=== PATIENT | male | born 1930 | race Caucasian/White ===

== ENCOUNTER 2018-10-19 07:41 | Inpatient (IN) ==
[2018-10-19] MEDS ORDERED: IOPAMIDOL 100 ML BOTTLE IV ONE (07:42)
--- NOTE | 2018-10-19 07:58 | Emergency Department Note ---
SOB HPI - General Chief Complaint: Shortness of Breath/Dyspnea Stated Complaint: SOB Time Seen by Provider: 10/19/18 07:44 Source: patient, family Mode of arrival: ambulatory Limitations: no limitations - History of Present Illness Pleasant 88-year-old male who Has been running out of air. He has a history of several years of some of this but he has been worsening in the last week or 2. Even 7 days ago it was causing him to be short of breath to bend ove r to place a tea for golfing. Since that time a week ago he has had some difficulty sleeping where he just seems like he cannot get comfortable but he admits that it is also due to shortness of breath. He has had a few chills but not sweaty. No fevers. He has had some palpitations but no chest pain. He has occasional cough but nothing new has really changed except a little wheeziness. He has had a little more phlegm than usual. Has felt quite short of breath generally and that is why he is here today. REVIEW OF SYSTEMS: Denies sore throat or runny nose but has had some chronic postnasal drainage for months. No chest pain No abdominal pain, nausea, vomiting, diarrhea, constipation, hematochezia. Some urinary hesitancy that has gradually been. No back pain Feels some lightheaded or dizzy. - Related Data Home Medications Medication Instructions Recorded Confirmed Allopurinol [Zyloprim] 05/15/17 Carvedilol 05/15/17 Lasix 05/15/17 Simvastatin 05/15/17 amLODIPine 05/15/17 Allergies Allergy/AdvReac Type Severity Reaction Status Date / Time No Known Drug Allergies Allergy Verified 05/15/17 18:33 Past Medical History - Past Medical History Medical history: Reports: hypertension Surgical history ED: Reports: no surgical history, non-contributory - Social History smoking status: Former smoker Physical Exam Limitations: no limitations General appearance: alert, in no apparent distress Head: atraumatic, normocephalic Eye: Present: normal appearance, PERRL, EOMI. Absent: scleral icterus, conjunctival injection ENT: normal oropharynx, mucous membranes moist Neck: Present: trachea midline. Absent: lymphadenopathy, thyromegaly Chest: Present: symmetric chest wall rise Respiratory: Present: normal lung sounds bilaterally. Absent: respiratory distress, wheezes, stridor, accessory muscle use, prolonged expiratory phase Cardiovascular: Present: regular rate, normal rhythm. Absent: systolic murmur, diastolic murmur Abdominal: Present: soft. Absent: distention, tenderness, guarding, rebound, rigidity, organomegaly, mass Extremities: Present: pedal edema (2/4 bilateral.), pretibial edema (3/4 bilateral.). Absent: calf tenderness Neurological: Present: alert, oriented X3 Psychiatric: Present: normal affect, normal mood Skin: Present: warm, dry Course Vital Signs Temperature 98.0 F 10/19/18 07:43 Pulse Rate 74 10/19/18 07:43 Respiratory Rate 30 H 10/19/18 07:43 Blood Pressure 130/59 10/19/18 07:43 Pulse Oximetry (%) 70 L 10/19/18 07:43 Temperature 98.0 F 10/19/18 07:43 Pulse Rate 58 L 10/19/18 08:49 Respiratory Rate 22 10/19/18 08:49 Blood Pressure 110/47 10/19/18 08:47 Pulse Oximetry (%) 94 10/19/18 08:49 Shortness of Breath/Dyspnea - [facility] Narrative Medical decision making narrative: 8:02 AM -shortness of breath with orthopnea gradually worsening over days to weeks. Labs, EKG, chest x-ray. Initial EKG demonstrates right bundle branch block with PVC. No acute ACS. Is similar to previous EKG from April 2017. Patient admits to missing some of his diuretics accidentally over the past weeks. We will go ahead and give him Lasix 20 mg IV. Chest x-ray demonstrates cardiomegaly and patchy infiltrates. - Lab Data Result diagrams: 10/19/18 08:05 10/19/18 08:05 Lab Results 10/19/18 10/19/18 10/19/18 Range/Units 08:05 08:05 08:05 WBC 5.9 (4.5-11.0) K/mcL RBC 3.95 L (4.50-5.90) M/mcL Hgb 12.3 L (13.5-16.5) g/dL Hct 38.1 L (41.0-55.0) % MCV 96.3 (80.0-100.0) fL MCH 31.0 (26.0-34.0) pg MCHC 32.2 (31.0-36.0) g/dL RDW 15.0 H (11.5-14.5) % Plt Count 140 (140-440) K/mcL MPV 9.3 (7.4-10.4) fL Gran % 78.5 H (38.0-78.0) % Lymph % (Auto) 13.9 L (15.5-49.0) % [place] % (Auto) 7.1 (1.0-12.0) % Eos % (Auto) 0.2 (0.0-7.0) % Baso % (Auto) 0.3 (0.0-2.0) % Gran # 4.6 (1.8-8.0) K/mcL Lymph # (Auto) 0.8 L (1.5-4.8) K/mcL [place] # (Auto) 0.4 (0.1-0.9) K/mcL Eos # (Auto) 0 (0.0-0.7) K/mcL Baso # (Auto) 0 (0.0-0.3) K/mcL D-Dimer (0.00-0.40) ug/ml Sodium 141 (133-145) mmol/L Potassium 4.5 (3.3-5.1) mmol/L Chloride 100 (96-108) mmol/L Carbon Dioxide 27 (22-30) mmol/L Anion Gap 14.0 (8-16) BUN 39 H (8-23) mg/dl Creatinine 1.4 H (0.7-1.2) mg/dl GFR Calculation 45 Glucose 174 H (70-105) mg/dL Calcium 8.5 L (8.6-10.4) mg/dl Total Bilirubin 0.3 (0.0-1.0) mg/dL AST 11 (0-37) U/l ALT 8 (0-40) U/l Alkaline Phosphatase 84 (39-117) U/L Troponin T < 0.01 (0-0.03) ng/ml NT-Pro-B Natriuret Pep 1810.0 H (0-450) pg/ml Total Protein 6.5 (5.9-8.4) gm/dL Albumin 3.5 (3.2-5.2) gm/dL Globulin 3.0 (2.2-3.7) gm/dL Albumin/Globulin Ratio 1.2 (1.0-2.3) Procalcitonin (<0.10) ng/mL 10/19/18 10/19/18 Range/Units 08:05 08:06 WBC (4.5-11.0) K/mcL RBC (4.50-5.90) M/mcL Hgb (13.5-16.5) g/dL Hct (41.0-55.0) % MCV (80.0-100.0) fL MCH (26.0-34.0) pg MCHC (31.0-36.0) g/dL RDW (11.5-14.5) % Plt Count (140-440) K/mcL MPV (7.4-10.4) fL Gran % (38.0-78.0) % Lymph % (Auto) (15.5-49.0) % [place] % (Auto) (1.0-12.0) % Eos % (Auto) (0.0-7.0) % Baso % (Auto) (0.0-2.0) % Gran # (1.8-8.0) K/mcL Lymph # (Auto) (1.5-4.8) K/mcL [place] # (Auto) (0.1-0.9) K/mcL Eos # (Auto) (0.0-0.7) K/mcL Baso # (Auto) (0.0-0.3) K/mcL D-Dimer 1.22 H (0.00-0.40) ug/ml Sodium (133-145) mmol/L Potassium (3.3-5.1) mmol/L Chloride (96-108) mmol/L Carbon Dioxide (22-30) mmol/L Anion Gap (8-16) BUN (8-23) mg/dl Creatinine (0.7-1.2) mg/dl GFR Calculation Glucose (70-105) mg/dL Calcium (8.6-10.4) mg/dl Total Bilirubin (0.0-1.0) mg/dL AST (0-37) U/l ALT (0-40) U/l Alkaline Phosphatase (39-117) U/L Troponin T (0-0.03) ng/ml NT-Pro-B Natriuret Pep (0-450) pg/ml Total Protein (5.9-8.4) gm/dL Albumin (3.2-5.2) gm/dL Globulin (2.2-3.7) gm/dL Albumin/Globulin Ratio (1.0-2.3) Procalcitonin < 0.05 (<0.10) ng/mL Disposition Pt seen by RESOURCE DEVELOPMENT DIRECTOR/PA only: No Summary: Labs are pending. Dr. Kentrell Miramontes is coming on for change of shift. He will assume care and final disposition. Disposition: Still a Patient Referrals: Connor Bhakta MD [Primary Care Provider] -
--- NOTE | 2018-10-19 08:38 | XRay Report ---
INDICATION: Hypoxia TECHNIQUE: AP chest x-ray,portable semiupright COMPARISON: Previous examinations dated 04/25/2012, 07/31/2011 FINDINGS:Previous median sternotomy. There is cardiomegaly. Pulmonary vascularity is prominent and there is probable interstitial pulmonary edema. There is a focal infiltrate in the left midlung consistent with pneumonia. No evidence on frontal view chest x-ray for significant effusion IMPRESSION: 1. Cardiomegaly and probable interstitial edema 2. Focal left lung infiltrate consistent with pneumonia Interpreted and Authenticated by: Perry Jensen 10/19/18
[2018-10-19] MEDS ORDERED: FUROSEMIDE 20 MG/2 ML VIAL IV ONE (08:41)
[2018-10-19 08:50] LABS: Basophils # (Auto) 0 K/mcL (0.0-0.3); Basophils % (Auto) 0.3 % (0.0-2.0); Eosinophils # (Auto) 0 K/mcL (0.0-0.7); Eosinophils % (Auto) 0.2 % (0.0-7.0); Granulocytes % (Auto) 78.5 % (38.0-78.0); Hematocrit 38.1 % (41.0-55.0); Hemoglobin 12.3 g/dL (13.5-16.5); Lymphocytes # (Auto) 0.8 K/mcL (1.5-4.8); Lymphocytes % (Auto) 13.9 % (15.5-49.0); Mean Cell Volume 96.3 fL (80.0-100.0); Mean Corpuscular HGB Conc 32.2 g/dL (31.0-36.0); Mean Platelet Volume 9.3 fL (7.4-10.4); Monocytes # (Auto) 0.4 K/mcL (0.1-0.9); Monocytes % (Auto) 7.1 % (1.0-12.0); Platelet Count 140 K/mcL (140-440); RBC 3.95 M/mcL (4.50-5.90); WBC 5.9 K/mcL (4.5-11.0)
[2018-10-19 09:13] LABS: ALT/SGPT 8 U/l (0-40); AST/SGOT 11 U/l (0-37); Albumin 3.5 gm/dL (3.2-5.2); Albumin/Globulin Ratio 1.2 (1.0-2.3); Alkaline Phosphatase 84 U/L (39-117); Bilirubin,Total 0.3 mg/dL (0.0-1.0); Blood Urea Nitrogen 39 mg/dl (8-23); Calcium 8.5 mg/dl (8.6-10.4); Carbon Dioxide 27 mmol/L (22-30); Chloride 100 mmol/L (96-108); Glomerular Filtration Rate 45; Glucose 174 mg/dL (70-105); Potassium 4.5 mmol/L (3.3-5.1); Sodium 141 mmol/L (133-145)
--- NOTE | 2018-10-19 09:48 | Emergency Department Note ---
General Adult HPI - General Chief complaint: Shortness of Breath/Dyspnea Stated complaint: SOB Time Seen by Provider: 10/19/18 07:44 Source: patient, family Mode of arrival: ambulatory Limitations: no limitations - History of Present Illness HPI Narrative: I received this patient in checkout from Dr. Sosa. I reviewed Dr. Storm note as well as his chest x-ray EKG and available lab Additional history per patient that he does have a history of CHF and has had previous CABG. - Related Data Home Medications Medication Instructions Recorded Confirmed Albuterol Sulfate [Ventolin] 2 puff INH TID PRN 10/19/18 10/19/18 Allopurinol [Zylopriim] 300 mg PO DAILY 10/19/18 10/19/18 Carvedilol [Coreg] 1.5 tab PO HS 10/19/18 10/19/18 Carvedilol [Coreg] 25 mg PO DAILY 10/19/18 10/19/18 Furosemide [Lasix] 40 mg PO DAILY 10/19/18 10/19/18 Lisinopril [Zestril] 40 mg PO BID 10/19/18 10/19/18 Simvastatin [Zocor] 40 mg PO HS 10/19/18 10/19/18 amLODIPine [Norvasc] 5 mg PO DAILY 10/19/18 10/19/18 Allergies Allergy/AdvReac Type Severity Reaction Status Date / Time No Known Drug Allergies Allergy Verified 05/15/17 18:33 Past Medical History - Past Medical History Medical history: Reports: hypertension Surgical history ED: Reports: no surgical history, non-contributory - Social History smoking status: Former smoker Physical Exam I briefly reexamined the patient note that his legs with +2 pedal edema. No shortness of breath but he is on oxygen at the bed. He is mildly hard of hearing Limitations: no limitations General appearance: alert, in no apparent distress Course Vital Signs Temperature 98.0 F 10/19/18 07:43 Pulse Rate 74 10/19/18 07:43 Respiratory Rate 30 H 10/19/18 07:43 Blood Pressure 130/59 10/19/18 07:43 Pulse Oximetry (%) 70 L 10/19/18 07:43 Temperature 98.0 F 10/19/18 07:43 Pulse Rate 51 L 10/19/18 11:17 Respiratory Rate 23 H 10/19/18 11:17 Blood Pressure 121/59 10/19/18 10:45 Pulse Oximetry (%) 96 10/19/18 11:17 Medical Decision Making - Lab Data Lab results reviewed: Yes I reviewed the patient's lab results. Result diagrams: 10/19/18 08:05 10/19/18 08:05 Lab Results 10/19/18 10/19/18 10/19/18 Range/Units 08:05 08:05 08:05 WBC 5.9 (4.5-11.0) K/mcL RBC 3.95 L (4.50-5.90) M/mcL Hgb 12.3 L (13.5-16.5) g/dL Hct 38.1 L (41.0-55.0) % MCV 96.3 (80.0-100.0) fL MCH 31.0 (26.0-34.0) pg MCHC 32.2 (31.0-36.0) g/dL RDW 15.0 H (11.5-14.5) % Plt Count 140 (140-440) K/mcL MPV 9.3 (7.4-10.4) fL Gran % 78.5 H (38.0-78.0) % Lymph % (Auto) 13.9 L (15.5-49.0) % Graham % (Auto) 7.1 (1.0-12.0) % Eos % (Auto) 0.2 (0.0-7.0) % Baso % (Auto) 0.3 (0.0-2.0) % Gran # 4.6 (1.8-8.0) K/mcL Lymph # (Auto) 0.8 L (1.5-4.8) K/mcL Graham # (Auto) 0.4 (0.1-0.9) K/mcL Eos # (Auto) 0 (0.0-0.7) K/mcL Baso # (Auto) 0 (0.0-0.3) K/mcL D-Dimer (0.00-0.40) ug/ml VBG Lactic Acid (0.5-2.0) mmol/L Sodium 141 (133-145) mmol/L Potassium 4.5 (3.3-5.1) mmol/L Chloride 100 (96-108) mmol/L Carbon Dioxide 27 (22-30) mmol/L Anion Gap 14.0 (8-16) BUN 39 H (8-23) mg/dl Creatinine 1.4 H (0.7-1.2) mg/dl GFR Calculation 45 Glucose 174 H (70-105) mg/dL Calcium 8.5 L (8.6-10.4) mg/dl Total Bilirubin 0.3 (0.0-1.0) mg/dL AST 11 (0-37) U/l ALT 8 (0-40) U/l Alkaline Phosphatase 84 (39-117) U/L Troponin T < 0.01 (0-0.03) ng/ml NT-Pro-B Natriuret Pep 1810.0 H (0-450) pg/ml Total Protein 6.5 (5.9-8.4) gm/dL Albumin 3.5 (3.2-5.2) gm/dL Globulin 3.0 (2.2-3.7) gm/dL Albumin/Globulin Ratio 1.2 (1.0-2.3) Procalcitonin (<0.10) ng/mL 10/19/18 10/19/18 10/19/18 Range/Units 08:05 08:06 10:54 WBC (4.5-11.0) K/mcL RBC (4.50-5.90) M/mcL Hgb (13.5-16.5) g/dL Hct (41.0-55.0) % MCV (80.0-100.0) fL MCH (26.0-34.0) pg MCHC (31.0-36.0) g/dL RDW (11.5-14.5) % Plt Count (140-440) K/mcL MPV (7.4-10.4) fL Gran % (38.0-78.0) % Lymph % (Auto) (15.5-49.0) % Graham % (Auto) (1.0-12.0) % Eos % (Auto) (0.0-7.0) % Baso % (Auto) (0.0-2.0) % Gran # (1.8-8.0) K/mcL Lymph # (Auto) (1.5-4.8) K/mcL Graham # (Auto) (0.1-0.9) K/mcL Eos # (Auto) (0.0-0.7) K/mcL Baso # (Auto) (0.0-0.3) K/mcL D-Dimer 1.22 H (0.00-0.40) ug/ml VBG Lactic Acid 0.5 (0.5-2.0) mmol/L Sodium (133-145) mmol/L Potassium (3.3-5.1) mmol/L Chloride (96-108) mmol/L Carbon Dioxide (22-30) mmol/L Anion Gap (8-16) BUN (8-23) mg/dl Creatinine (0.7-1.2) mg/dl GFR Calculation Glucose (70-105) mg/dL Calcium (8.6-10.4) mg/dl Total Bilirubin (0.0-1.0) mg/dL AST (0-37) U/l ALT (0-40) U/l Alkaline Phosphatase (39-117) U/L Troponin T (0-0.03) ng/ml NT-Pro-B Natriuret Pep (0-450) pg/ml Total Protein (5.9-8.4) gm/dL Albumin (3.2-5.2) gm/dL Globulin (2.2-3.7) gm/dL Albumin/Globulin Ratio (1.0-2.3) Procalcitonin < 0.05 (<0.10) ng/mL - Radiology Data Radiology results reviewed: Yes I reviewed the patient's radiology results. Chest x-ray shows stigmata of CHF with interstitial edema and increased pulmonary vascular marking\\ CTA of the chest shows significant pneumonia as well as findings that could be consistent with underlying CHF - EKG Data EKG #1 EKG attestation: Yes I reviewed and interpreted this EKG. EKG results narrative: EKG shows sinus bradycardia with right bundle branch block and occasional PVC Disposition Pt seen by REAL ESTATE ASSISTANT/PA only: No Clinical Impression: Congestive heart failure Qualifiers: Heart failure type: unspecified Heart failure chronicity: acute on chronic Qualified Code(s): I50.9 - Heart failure, unspecified Community acquired pneumonia Qualifiers: Laterality: left Lung location: lower lobe of lung Qualified Code(s): J18.1 - Lobar pneumonia, unspecified organism Summary: Patient was given a dose of furosemide but had not urinated yet. D-dimer was elevated so CTA was ordered CT scan does not show pulmonary emboli but it does show community acquired pneumonia. Blood cultures are ordered and antibiotic started per antibiotic gram this is Rocephin plus azithromycin. I did discuss the situation with the patient and his son-he will require hospital stay Patient will require hospital admission because he is having tachypnea now requiring oxygen. He will require treatment for the pneumonia as well as the CHF. Further laboratories ordered. Hospitalist will be consulted Dr. Palumbo, our hospitalist was consulted on this patient. He agreed to accept the patient for further care and evaluation in the hospital Disposition: Xfer As Inpt ([facility]) Condition: Fair Referrals: Connor Bhakta MD [Primary Care Provider] -
--- NOTE | 2018-10-19 10:18 | Cat Scan Report ---
CLINICAL INFORMATION: Dyspnea. Elevated d-dimer. COMPARISON: Chest x-ray dated 10/19/2018 TECHNIQUE: Axial images obtained through the chest. 80 mL intravenous contrast was administered, and scanning was performed during pulmonary arterial phase. Sagittally and coronally reformatted images were obtained. MIP reformatted images. FINDINGS: Main pulmonary artery, right pulmonary artery, left pulmonary artery are negative. No intraluminal filling defects. No lobar or segmental emboli. Examination is negative for pulmonary embolism. There is cardiomegaly. There is no pericardial fluid. Chest x-ray suggestive of interstitial pulmonary edema. There are areas of patchy airspace consolidation. Findings are nonspecific. Acute pneumonia or organizing pneumonia are possible. There is right pleural calcification. This is probably chronic and related to previous infection. No left-sided calcified pleural plaques. No significant pleural effusion. There is some loculated fluid within the left major fissure. No acute thoracic compression fractures. Mild wedging deformities of the T6 and T9 vertebral bodies. No lytic lesions. Patient has undergone previous sternotomy and coronary artery bypass. No rib fractures or lytic lesions. There are multiple renal cysts. Upper abdomen is otherwise negative IMPRESSION: 1. Negative pulmonary CTA. Negative examination for pulmonary embolism 2. Patchy areas of airspace consolidation. Appearance is consistent with acute pneumonia or organizing pneumonia 3. Cardiomegaly. Probable interstitial edema. 4. Chronic right pleural calcification The exam was performed using radiation dose optimization techniques including, but not limited to, automated exposure control, adjustment of the mA and/or kV according to patient size and use of iterative reconstruction technique. Interpreted and Authenticated by: Perry Jensen 10/19/18
[2018-10-19] MEDS ORDERED: cefTRIAXone 1 GM VIAL IV ONE ×2 (10:36→12:45)
[2018-10-19] MEDS ORDERED: AZITHROMYCIN 250 MG TABLET PO ONE (10:36)
--- NOTE | 2018-10-19 11:58 | Internal Med History&Physical ---
Medical - H&P: HPI Patient information: Note initiated : 10/19/18 at 11:54 am Service Date, if different from initiated Date: [] Patient: Cristobal Moralez a 88 y/o M admitted on for Shortness of breath. Chief Complaint: [] History of present illness: Mr. Moralez is a 88 year old M with history of cardiac issues, presented to the hospital today for evaluation of shortness of breath that has been going on for the last 1 week. The patient notes that he was fine a week ago, he played a long game of golf and thinks he overexerted himself. Since then he has been having progressive shortness of breath. The patient was having decreased effort tolerance, and some mild cough. The patient then went to [place] for 3 days for a family outing. He also notes he may have overexerted over there. The patient did not take his water pills for the last 3 days. When he came back the patient's condition had worsened significantly, usually the patient is able to do yard work and then needs to take a rest because of shortness of breath every half an hour or so. The patient was now short of breath with minimal activity and even at rest he was therefore brought to the emergency room for further evaluation. The patient admits to having some cough with brownish sputum. Shortness of breath, however no other complaints. He has intermittent dizziness, denies any chest pain does always feel cold but no chills reported. No headache changes in vision no difficulty in swallowing no nausea no vomiting no diarrhea no recent hospitalizations reported. Patient has chronic lower extremity edema which is slightly worse now as he has missed his diuretic dose. Gill On presenting to the emergency room patient was afebrile heart rate 74 blood pressure 130 x 59 saturating 70% on room air. Respiration rate was 30 Chest x-ray was done which shows patient has bilateral pneumonia, cardiomegaly and possible CHF, patient had a positive d-dimer and a CT angios was done which was negative for PE but patient had pneumonia, also had some pleural effusion in the left fissure.?? Loculated?? Labs show WBC count of 5.9 hemoglobin 12.3 platelets 140 sodium 141 potassium 4.5 BUN 39 creatinine 1.4 which is nearly at baseline bicarbonate 27 glucose 174 procalcitonin is less than 0.05 BNP is 1810. At the time of my evaluation patient was needing around 6 L of oxygen to maintain his oxygen saturation more than 90. Patient is being admitted to the PCU for further management All systems: reviewed and no additional remarkable complaints except as stated (as per HPI rest negative) Medical - H&P: PMH Medical history: Medical History (Last Updated 10/19/18 @ 07:58 by Maxwell Sosa DO) Hyperlipidemia (Acute) COPD (chronic obstructive pulmonary disease) (Chronic) History of gout (Chronic) Obesity (BMI 30.0-34.9) (Chronic) Hypertension, essential (Chronic) CAD CHF? lower extremity edema Surgical history: Past Surgical History (Last Updated 10/19/18 @ 07:56 by Maxwell Sosa DO) History of coronary artery bypass graft (Chronic) Family history: reviewed and not pertinent Social history: lives with son ex tobacco user no etoh reported no drugs reported Medical - H&P: Meds Home Medications Medication Instructions Recorded Confirmed Type Allopurinol [Zyloprim] 05/15/17 History Carvedilol 05/15/17 History Lasix 05/15/17 History Simvastatin 05/15/17 History amLODIPine 05/15/17 History Allergies Allergy/AdvReac Type Severity Reaction Status Date / Time No Known Drug Allergies Allergy Verified 05/15/17 18:33 Medical - H&P: Exam - Constitutional Vitals: Temp Pulse Resp BP Pulse Ox 98.0 F 51 L 23 H 121/59 96 10/19/18 07:43 10/19/18 11:17 10/19/18 11:17 10/19/18 10:45 10/19/18 11:17 Exam: GENERAL: The patient is a well-developed, well-nourished in no apparent distress. Is alert and oriented x3. obese individual VITAL SIGNS: Reviewed and as noted elsewhere. HEENT: Head is normocephalic and atraumatic. Extraocular muscles are intact. Pupils are equal, round, and reactive to light. Nares appeared normal. Mouth appears any without lesions. Mucous membranes are dry. NECK: Normal to inspection, Supple, No lymphadenopathy or thyromegaly. LUNGS: Air entry equal on both sides, no wheezing, decreased air entry on both sides, pt on 5-6 L oxygen, no rales or obvious rhonchi noted. pt speaking full sentences. HEART: Regular rate and rhythm normal, S1 and S2 heard, no Gallop, S3 or Rub Noted, No Gross murmur heard. ABDOMEN: Soft, nontender, and nondistended. Positive bowel sounds. No hepatosplenomegaly was noted. Large pannus EXTREMITIES: No cyanosis, clubbing, rash, , edema _+++ NEUROLOGIC: Cranial nerves II through XII are grossly intact. Motor and Sensory System Grossly Intact PSYCHIATRIC: Normal affect, Normal Mood. Appropriate Behavior. SKIN: No ulceration or wounds noted, No jaundice, No rash noted. Medical - H&P: Reslt - Labs CBC & Chem 7: 10/19/18 08:05 10/19/18 08:05 Labs: Short CBC 10/19/18 Range/Units 08:05 WBC 5.9 (4.5-11.0) K/mcL Hgb 12.3 L (13.5-16.5) g/dL Hct 38.1 L (41.0-55.0) % Plt Count 140 (140-440) K/mcL BMP 10/19/18 08:05 Sodium 141 Potassium 4.5 Chloride 100 Carbon Dioxide 27 BUN 39 H Creatinine 1.4 H Glucose 174 H Calcium 8.5 L Cardiac Enzymes 10/19/18 Range/Units 08:05 Troponin T < 0.01 (0-0.03) ng/ml Liver Function 10/19/18 Range/Units 08:05 Total Bilirubin 0.3 (0.0-1.0) mg/dL AST 11 (0-37) U/l ALT 8 (0-40) U/l Alkaline Phosphatase 84 (39-117) U/L Albumin 3.5 (3.2-5.2) gm/dL Medical - H&P: A/P - Narrative A/P Narrative: A/P Acute hypoxic Respiratory failure -Pt on 5-6 L oxgye, if worsens will consider bipap -treat underlying condition Pneumonia, Community Acquired -IV rocehin and zithromax -blood and sputum cx, urine strep ag, mycoplasma and legionella Obesity, bmi 332.2 CAD, s/p bypass -no cp, n statin, asa, resume home meds HTN -bp stable, -given infection, will hold off on resuming home meds, HLD on statin, resume once verified. CKD -creat is 1.4, at baseline it seems DVT hep sq Diet cardiac Full code. Pt ok with short term vent, but does not wish to be a vegetable
[2018-10-19] MEDS ORDERED: NALOXONE HCL 0.4 MG/ML VIAL IV PRN (12:28)
[2018-10-19] MEDS ORDERED: MAG HYDROX/AL HYDROX/SIMETH 30 ML ORAL.SUSP PO PRN (12:28)
[2018-10-19] MEDS ORDERED: ONDANSETRON 4 MG/2 ML VIAL IV PRN (12:28)
[2018-10-19] MEDS ORDERED: ACETAMINOPHEN 325 MG TABLET PO PRN (12:28)
[2018-10-19] MEDS ORDERED: ALBUTEROL SULFATE 1 PUFF INHALER INH PRN (13:59)
[2018-10-19] MEDS ORDERED: FUROSEMIDE 40 MG/4 ML VIAL IV ONE (13:59)
[2018-10-19] MEDS: 0.9 % SODIUM CHLORIDE 10 ML SYRINGE IV SCH ×2 (14:00→22:15)
--- NOTE | 2018-10-19 14:08 | Internal Med Progress Note ---
Medical - PN: Subj Patient information: Note initiated : 10/19/18 at 1:49 pm Service Date, if different from initiated Date: [] Patient: Cristobal Moralez a 88 y/o M admitted on 10/19/18 for Shortness of breath. Chief Complaint: [] Interval history: Mr. Moralez is a 88 year old M with history of cardiac issues, presented to the hospital today for evaluation of shortness of breath that has been going on for the last 1 week. The patient notes that he was fine a week ago, he played a long game of golf and thinks he overexerted himself. Since then he has been having progressive shortness of breath. The patient was having decreased effort tolerance, and some mild cough. The patient then went to [place] for 3 days fo r a family outing. He also notes he may have overexerted over there. The patient did not take his water pills for the last 3 days. When he came back the patient's condition had worsened significantly, usually the patient is able to do yard work and then needs to take a rest because of shortness of breath every half an hour or so. The patient was now short of breath with minimal activity and even at rest he was therefore brought to the emergency room for further evaluation. The patient admits to having some cough with brownish sputum. Shortness of breath, however no other complaints. He has intermittent dizziness, denies any chest pain does always feel cold but no chills reported. No headache changes in vision no difficulty in swallowing no nausea no vomiting no diarrhea no recent hospitalizations reported. Patient has chronic lower extremity edema which is slightly worse now as he has missed his diuretic dose. [place] On presenting to the emergency room patient was afebrile heart rate 74 blood pressure 130 x 59 saturating 70% on room air. Respiration rate was 30 Chest x-ray was done which shows patient has bilateral pneumonia, cardiomegaly and possible CHF, patient had a positive d-dimer and a CT angios was done which was negative for PE but patient had pneumonia, also had some pleural effusion in the left fissure.?? Loculated?? Labs show WBC count of 5.9 hemoglobin 12.3 platelets 140 sodium 141 potassium 4.5 BUN 39 creatinine 1.4 which is nearly at baseline bicarbonate 27 glucose 174 procalcitonin is less than 0.05 BNP is 1810. At the time of my evaluation patient was needing around 6 L of oxygen to maintain his oxygen saturation more than 90. Patient is being admitted to the PCU for further management 10/20 - Constitutional Vitals: Vital Signs Temp Pulse Resp BP Pulse Ox 97.2 F 57 L 16 133/67 97 10/19/18 12:28 10/19/18 12:17 10/19/18 12:28 10/19/18 12:28 10/19/18 12:28 Period Temp Pulse Resp BP Sys/Hamilton Pulse Ox Last 24 Hr 97.2 F-98.0 F 51-74 14-30 93-135/46-67 70-97 Intake and Output 10/18/18 10/19/18 10/19/18 21:59 05:59 13:59 Output Total 275 Balance -275 Weight 102.058 kg Patient Weight 10/20/18 05:59 Weight 102.058 kg Intake & Output: Intake & Output 10/18/18 10/19/18 10/19/18 21:59 05:59 13:59 Output Total 275 Balance -275 Weight 102.058 kg Output: Urine Catheter Amount 275 Other: Urine Appearance Clear Urine Color Pale Urine Odor Normal Exam: General: Alert, Awake, No acute Distress Eyes/N/T: EOMI, Head/Neck: neck supple, CV: RRR, No murmurs, Pulm: Abd: soft, nontender, +BS x4 Ext: no clubbing/cyanosis + b/l LE edema Neuro: Alert, no focal deficits, moves all extremities, Skin: warm/dry Medical - PN: Obj Da - Labs CBC & Chem 7: 10/19/18 08:05 10/19/18 08:05 Labs: Abnormal Lab Results 10/19/18 10/19/18 10/19/18 08:06 08:05 08:05 RBC 3.95 L Hgb 12.3 L Hct 38.1 L RDW 15.0 H Gran % 78.5 H Lymph % (Auto) 13.9 L Lymph # (Auto) 0.8 L D-Dimer 1.22 H BUN 39 H Creatinine 1.4 H Glucose 174 H Calcium 8.5 L NT-Pro-B Natriuret Pep 1810.0 H Meds: Medications Acetaminophen (Tylenol) 650 mg PO Q4-6HP PRN PRN Reason: PAIN/FEVER > 101 Al Hydrox/Mg Hydrox/Simethicone (Maalox) 30 ml PO Q4-6HP PRN PRN Reason: Dyspepsia Albuterol/Ipratropium (Duoneb) 3 ml NEB Q4HRT [facility] Azithromycin (Zithromax) 250 mg PO DAILY [facility]; Protocol Stop: 10/23/18 09:01 Famotidine (Pepcid) 20 mg IV HS [facility] Heparin Sodium (Porcine) (Heparin) 5,000 unit SQ Q12 [facility] Ceftriaxone Sodium 2 gm/ (Dextrose) 50 mls @ 100 mls/hr IV DAILY [facility]; Protocol Naloxone HCl (Narcan) 0.1 mg IV Q2MIN PRN PRN Reason: Opiate Reversal Ondansetron HCl (Zofran) 4 mg IV Q4-6HP PRN PRN Reason: Nausea And Vomiting Sodium Chloride (Saline Flush) 10 ml IV Q8 [facility] Medical - PN: A/P - Time Spent With Patient Total time spent is greater than 50% in coordination of care (as documented) at patient's floor/unit and/or counseling patient: - Narrative A/P Narrative: A: *Acute hypoxic respiratory failure -5-6L oxymask on admit *CAP: -myco/Strep Ag neg *acute on likely chronic CHF: *CAD w/CABG: *HTN: on norvasc/lisinopril/coreg/lasix *CKD III: *Obesity: * P: -IV Rocephin/Azithromycin -Wean down oxygen -IS/Acapella -pending BC/SC -Continue ASA -Restart home coreg, hold lisinopril and norvasc for now -IV lasix -echo -pt -ppx: heparin/pepcid full code
[2018-10-19] MEDS: IPRATROPIUM/ALBUTEROL 3 ML AMPUL.NEB NEB SCH ×2 (15:14→18:57)
[2018-10-19] MEDS ORDERED: IPRATROPIUM/ALBUTEROL 3 ML AMPUL.NEB NEB PRN (19:57)
[2018-10-19] MEDS: HEPARIN 5,000 UNIT/ML VIAL SQ SCH (20:38)
[2018-10-19] MEDS: FAMOTIDINE/PF 20 MG/2 ML VIAL IV SCH (20:38)
[2018-10-19] MEDS: SIMVASTATIN 40 MG TABLET PO SCH (20:38)
[2018-10-19] MEDS ORDERED: CARVEDILOL 12.5 MG TABLET PO SCH (21:00)
[2018-10-20 05:33] LABS: Basophils # (Auto) 0 K/mcL (0.0-0.3); Basophils % (Auto) 0.3 % (0.0-2.0); Eosinophils # (Auto) 0.1 K/mcL (0.0-0.7); Eosinophils % (Auto) 2.2 % (0.0-7.0); Granulocytes % (Auto) 69.2 % (38.0-78.0); Hematocrit 36.2 % (41.0-55.0); Hemoglobin 11.7 g/dL (13.5-16.5); Lymphocytes # (Auto) 1.1 K/mcL (1.5-4.8); Mean Cell Volume 97.5 fL (80.0-100.0); Mean Corpuscular HGB Conc 32.3 g/dL (31.0-36.0); Mean Platelet Volume 8.7 fL (7.4-10.4); Monocytes # (Auto) 0.7 K/mcL (0.1-0.9); Monocytes % (Auto) 11.3 % (1.0-12.0); Platelet Count 136 K/mcL (140-440); RBC 3.72 M/mcL (4.50-5.90); Red Cell Distribution Width 14.5 % (11.5-14.5); WBC 6.3 K/mcL (4.5-11.0)
[2018-10-20] MEDS: 0.9 % SODIUM CHLORIDE 10 ML SYRINGE IV SCH ×3 (05:45→22:26)
[2018-10-20 05:58] LABS: ALT/SGPT 8 U/l (0-40); AST/SGOT 9 U/l (0-37); Albumin 3.3 gm/dL (3.2-5.2); Albumin/Globulin Ratio 1.2 (1.0-2.3); Alkaline Phosphatase 74 U/L (39-117); Bilirubin,Direct < 0.2 mg/dL (0.0-0.3); Bilirubin,Total 0.2 mg/dL (0.0-1.0); Blood Urea Nitrogen 43 mg/dl (8-23); Calcium 8.2 mg/dl (8.6-10.4); Carbon Dioxide 30 mmol/L (22-30); Chloride 103 mmol/L (96-108); Globulin 2.8 gm/dL (2.2-3.7); Glomerular Filtration Rate 54; Glucose 123 mg/dL (70-105); Lactate Dehydrogenase 127 U/L (94-250); Magnesium 2.3 mg/dL (1.6-2.5); Phosphorous 4.7 mg/dL (2.7-4.5); Potassium 4.7 mmol/L (3.3-5.1); Sodium 144 mmol/L (133-145); Triglycerides 55 mg/dl (<150); Uric Acid 4.4 mg/dL (2.5-8.0)
--- NOTE | 2018-10-20 07:35 | Internal Med Progress Note ---
Medical - PN: Subj Patient information: Note initiated : 10/20/18 at 7:31 am Service Date, if different from initiated Date: [] Patient: Cristobal Moralez 88 y/o M admitted on 10/19/18 for Shortness of breath. Chief Complaint: [] Interval history: Mr. Moralez is a 88 year old M with history of cardiac issues, presented to the hospital today for evaluation of shortness of breath that has been going on for the last 1 week. The patient notes that he was fine a week ago, he played a long game of golf and thinks he overexerted himself. Since then he has been having progressive shortness of breath. The patient was having decreased effort tolerance, and some mild cough. The patient then went to [place] for 3 days fo r a family outing. He also notes he may have overexerted over there. The patient did not take his water pills for the last 3 days. When he came back the patient's condition had worsened significantly, usually the patient is able to do yard work and then needs to take a rest because of shortness of breath every half an hour or so. The patient was now short of breath with minimal activity and even at rest he was therefore brought to the emergency room for further evaluation. The patient admits to having some cough with brownish sputum. Shortness of breath, however no other complaints. He has intermittent dizziness, denies any chest pain does always feel cold but no chills reported. No headache changes in vision no difficulty in swallowing no nausea no vomiting no diarrhea no recent hospitalizations reported. Patient has chronic lower extremity edema which is slightly worse now as he has missed his diuretic dose. [place] On presenting to the emergency room patient was afebrile heart rate 74 blood pressure 130 x 59 saturating 70% on room air. Respiration rate was 30 Chest x-ray was done which shows patient has bilateral pneumonia, cardiomegaly and possible CHF, patient had a positive d-dimer and a CT angios was done which was negative for PE but patient had pneumonia, also had some pleural effusion in the left fissure.?? Loculated?? Labs show WBC count of 5.9 hemoglobin 12.3 platelets 140 sodium 141 potassium 4.5 BUN 39 creatinine 1.4 which is nearly at baseline bicarbonate 27 glucose 174 procalcitonin is less than 0.05 BNP is 1810. At the time of my evaluation patient was needing around 6 L of oxygen to maintain his oxygen saturation more than 90. Patient is being admitted to the PCU for further management 10/20 Clinically. Minimal cough. Still has shortness of breath but feels he can breathe easier than yesterday morning. He says that shortness of breath for 2 years but was worsening over the past 1 to 2 weeks. Additionally, did not miss Lasix for the past week. Describes orthopnea at home. Also describes liquids often going down the wrong pipe. Family present. Review of Systems: denies headache/fever/chills/nausea/vomiting/chest or abdominal pain/diarrhea. Otherwise see above. - Constitutional Vitals: Vital Signs Temp Pulse Resp BP Pulse Ox 99.0 F 61 17 124/51 90 10/20/18 04:02 10/19/18 19:00 10/20/18 05:01 10/20/18 05:57 10/20/18 05:57 Period Temp Pulse Resp BP Sys/Hamilton Pulse Ox Last 24 Hr 97.2 F-99.0 F 51-74 13-30 92-137/42-89 70-97 Intake and Output 10/19/18 10/20/18 10/20/18 21:59 05:59 13:59 Intake Total 480 Output Total 900 1250 Balance -420 -1250 Weight 105.3 kg Intake & Output: Intake & Output 10/19/18 10/20/18 10/20/18 21:59 05:59 13:59 Intake Total 480 Output Total 900 1250 Balance -420 -1250 Weight 105.3 kg Intake: Oral 480 Output: Void Amount 900 1250 Other: Meal Dinner Percent of Meal Consumed 75% Urine Color Pale Exam: General: Alert, Awake, No acute Distress Eyes/N/T: EOMI, Head/Neck: neck supple, CV: RRR, 3/6 SM Pulm: Bibasilar rales, no wheezing Abd: soft, nontender, +BS x4 Ext: no clubbing/cyanosis, 2-3+ b/l LE edema Neuro: Alert, no focal deficits, moves all extremities, Skin: warm/dry Medical - PN: Obj Da - Labs CBC & Chem 7: 10/20/18 03:50 10/20/18 03:50 Labs: Abnormal Lab Results 10/20/18 10/20/18 10/19/18 03:50 03:50 08:06 RBC 3.72 L Hgb 11.7 L Hct 36.2 L RDW Plt Count 136 L Gran % Lymph % (Auto) Lymph # (Auto) 1.1 L D-Dimer 1.22 H BUN 43 H Creatinine Glucose 123 H Calcium 8.2 L Phosphorus 4.7 H NT-Pro-B Natriuret Pep 10/19/18 10/19/18 08:05 08:05 RBC 3.95 L Hgb 12.3 L Hct 38.1 L RDW 15.0 H Plt Count Gran % 78.5 H Lymph % (Auto) 13.9 L Lymph # (Auto) 0.8 L D-Dimer BUN 39 H Creatinine 1.4 H Glucose 174 H Calcium 8.5 L Phosphorus NT-Pro-B Natriuret Pep 1810.0 H Meds: Medications Acetaminophen (Tylenol) 650 mg PO Q4-6HP PRN PRN Reason: PAIN/FEVER > 101 Al Hydrox/Mg Hydrox/Simethicone (Maalox) 30 ml PO Q4-6HP PRN PRN Reason: Dyspepsia Albuterol Sulfate (Ventolin) 2 puff INH TIDP PRN PRN Reason: Shortness Of Breath Or Wheezin Albuterol/Ipratropium (Duoneb) 3 ml NEB Q6HP PRN PRN Reason: Shortness Of Breath Or Wheezing Allopurinol (Zylopriim) 300 mg PO DAILY [facility] Aspirin (Aspirin) 81 mg PO DAILY [facility] Azithromycin (Zithromax) 250 mg PO DAILY [facility]; Protocol Stop: 10/23/18 09:01 Carvedilol (Coreg) 25 mg PO DAILY@0800 [facility] Carvedilol (Coreg) 37.5 mg PO HS [facility] Famotidine (Pepcid) 20 mg IV HS [facility] Last Admin: 10/19/18 20:38 Dose: 20 mg Documented by: Furosemide (Lasix) 40 mg PO DAILY [facility] Heparin Sodium (Porcine) (Heparin) 5,000 unit SQ Q12 [facility] Last Admin: 10/19/18 20:38 Dose: 5,000 unit Documented by: Ceftriaxone Sodium 2 gm/ (Dextrose) 50 mls @ 100 mls/hr IV DAILY [facility]; Protocol Naloxone HCl (Narcan) 0.1 mg IV Q2MIN PRN PRN Reason: Opiate Reversal Ondansetron HCl (Zofran) 4 mg IV Q4-6HP PRN PRN Reason: Nausea And Vomiting Simvastatin (Zocor) 40 mg PO HS [facility] Last Admin: 10/19/18 20:38 Dose: 40 mg Documented by: Sodium Chloride (Saline Flush) 10 ml IV Q8 [facility] Last Admin: 10/20/18 05:45 Dose: 10 ml Documented by: Medical - PN: A/P - Time Spent With Patient Total time spent is greater than 50% in coordination of care (as documented) at patient's floor/unit and/or counseling patient: - Narrative A/P Narrative: A: *Acute hypoxic respiratory failure: 2/2 chf/?CAP vs aspiration pneumonitis -5-6L oxymask on admit, now on 5L NC *Acute on 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 Whyet *HTN: on norvasc/lisinopril/coreg/lasix *CKD III: *Obesity: * P: -IV lasix -echo records from dr whyte -Wean down oxygen -IS/Acapella -IV Rocephin/Azithromycin for now -pending BC/SC -Continue ASA/statin -Restart home coreg, hold lisinopril and norvasc for now -pt/ot -ST eval -ppx: heparin/pepcid full code Medical - PN: Qual - VTE Deep Vein Thrombosis/Pulmonary Embolism Present on Admission: No
[2018-10-20] MEDS ORDERED: cefTRIAXone 2 GM VIAL ONE (07:57)
[2018-10-20] MEDS: ALLOPURINOL 300 MG TABLET PO SCH (08:23)
[2018-10-20] MEDS: ASPIRIN 81 MG TAB.CHEW PO SCH (08:23)
[2018-10-20] MEDS: HEPARIN 5,000 UNIT/ML VIAL SQ SCH ×2 (08:23→20:25)
[2018-10-20] MEDS: CARVEDILOL 12.5 MG TABLET PO SCH (08:23)
[2018-10-20] MEDS: AZITHROMYCIN 250 MG TABLET PO SCH (08:23)
[2018-10-20] MEDS: cefTRIAXone 2 GM in DEXTROSE 5% IN WATER 50 ML IV SCH (08:24)
--- NOTE | 2018-10-20 08:39 | XRay Report ---
CLINICAL INFORMATION: f/u edema vs pna COMPARISON: 10/19/2018 also baseline from 04/25/2012 FINDINGS: Moderate cardiomegaly is unchanged. Mediastinum is unremarkable. The pulmonary vessels are moderately congested - worsening. Moderate diffuse interstitial edema has progressed. There is moderate patchy superimposed infiltrate or edema in the left midlung and in the right mid /lower lung. These have worsened. Small bilateral pleural effusions noted IMPRESSION: Moderate CHF - worsening Moderate worsening bilateral airspace disease. Suspect superimposed aspiration versus atypically distributed edema. Consider: swallowing function study to assess aspiration risk when the patient returns to clinical baseline Interpreted and Authenticated by: Perry Morales 10/20/18
[2018-10-20] MEDS ORDERED: FUROSEMIDE 20 MG TABLET PO SCH (09:00)
[2018-10-20] MEDS ORDERED: HYDROCHLOROTHIAZIDE 12.5 MG CAPSULE PO ONE (09:20)
[2018-10-20] MEDS ORDERED: FUROSEMIDE 20 MG/2 ML VIAL IV ONE (09:20)
[2018-10-20] MEDS: FUROSEMIDE 40 MG/4 ML VIAL IV SCH (18:24)
[2018-10-20] MEDS: SIMVASTATIN 40 MG TABLET PO SCH (20:24)
[2018-10-20] MEDS: FAMOTIDINE/PF 20 MG/2 ML VIAL IV SCH (20:25)
[2018-10-20] MEDS ORDERED: CARVEDILOL 12.5 MG TABLET PO SCH (21:00)
[2018-10-21] MEDS: 0.9 % SODIUM CHLORIDE 10 ML SYRINGE IV SCH ×3 (05:19→20:41)
[2018-10-21 07:24] LABS: ALT/SGPT 7 U/l (0-40); AST/SGOT 14 U/l (0-37); Albumin/Globulin Ratio 0.9 (1.0-2.3); Alkaline Phosphatase 73 U/L (39-117); Bilirubin,Direct < 0.2 mg/dL (0.0-0.3); Bilirubin,Total 0.3 mg/dL (0.0-1.0); Blood Urea Nitrogen 42 mg/dl (8-23); Calcium 8.6 mg/dl (8.6-10.4); Carbon Dioxide 32 mmol/L (22-30); Chloride 98 mmol/L (96-108); Globulin 3.2 gm/dL (2.2-3.7); Glomerular Filtration Rate 42; Glucose 112 mg/dL (70-105); Lactate Dehydrogenase 228 U/L (94-250); Magnesium 2.1 mg/dL (1.6-2.5); Phosphorous 3.9 mg/dL (2.7-4.5); Sodium 144 mmol/L (133-145); Triglycerides 68 mg/dl (<150); Uric Acid 4.5 mg/dL (2.5-8.0)
[2018-10-21] MEDS ORDERED: OLANZapine 10 MG VIAL IM ONE (07:45)
--- NOTE | 2018-10-21 08:06 | Internal Med Progress Note ---
Medical - PN: Subj Patient information: Note initiated : 10/21/18 at 7:57 am Service Date, if different from initiated Date: [] Patient: Cristobal Moralez 88 y/o M admitted on 10/19/18 for Shortness of breath. Chief Complaint: [] Interval history: Mr. Moralez is a 88 year old M with history of cardiac issues, presented to the hospital today for evaluation of shortness of breath that has been going on for the last 1 week. The patient notes that he was fine a week ago, he played a long game of golf and thinks he overexerted himself. Since then he has been having progressive shortness of breath. The patient was having decreased effort tolerance, and some mild cough. The patient then went to [place] for 3 days fo r a family outing. He also notes he may have overexerted over there. The patient did not take his water pills for the last 3 days. When he came back the patient's condition had worsened significantly, usually the patient is able to do yard work and then needs to take a rest because of shortness of breath every half an hour or so. The patient was now short of breath with minimal activity and even at rest he was therefore brought to the emergency room for further evaluation. The patient admits to having some cough with brownish sputum. Shortness of breath, however no other complaints. He has intermittent dizziness, denies any chest pain does always feel cold but no chills reported. No headache changes in vision no difficulty in swallowing no nausea no vomiting no diarrhea no recent hospitalizations reported. Patient has chronic lower extremity edema which is slightly worse now as he has missed his diuretic dose. [place] On presenting to the emergency room patient was afebrile heart rate 74 blood pressure 130 x 59 saturating 70% on room air. Respiration rate was 30 Chest x-ray was done which shows patient has bilateral pneumonia, cardiomegaly and possible CHF, patient had a positive d-dimer and a CT angios was done which was negative for PE but patient had pneumonia, also had some pleural effusion in the left fissure.?? Loculated?? Labs show WBC count of 5.9 hemoglobin 12.3 platelets 140 sodium 141 potassium 4.5 BUN 39 creatinine 1.4 which is nearly at baseline bicarbonate 27 glucose 174 procalcitonin is less than 0.05 BNP is 1810. At the time of my evaluation patient was needing around 6 L of oxygen to maintain his oxygen saturation more than 90. Patient is being admitted to the PCU for further management 10/20 Clinically. Minimal cough. Still has shortness of breath but feels he can breathe easier than yesterday morning. He says that shortness of breath for 2 years but was worsening over the past 1 to 2 weeks. Additionally, did not miss Lasix for the past week. Describes orthopnea at home. Also describes liquids often going down the wrong pipe. Family present. 10/20 Had a change in mentation last night with ABG showing CO2 retention. Placed on BiPAP last night with improvement in his ABG. Was agitated this morning and refusing therapies medication. Had a discussion with him he seemed to understand at times but is still overall confused. Review of Systems: denies headache/fever/chills/nausea/vomiting/chest or abdominal pain/diarrhea. Otherwise see above. - Constitutional Vitals: Vital Signs Temp Pulse Resp BP Pulse Ox 97.4 F 66 18 120/50 91 10/21/18 07:11 10/21/18 07:00 10/21/18 07:11 10/21/18 07:01 10/21/18 07:11 Period Temp Pulse Resp BP Sys/Hamilton Pulse Ox Last 24 Hr 97.4 F-101.4 F 54-66 11-28 100-162/46-69 88-99 Intake and Output 10/20/18 10/21/18 10/21/18 21:59 05:59 13:59 Output Total 1500 800 Balance -1500 -800 Weight 104.4 kg Intake & Output: Intake & Output 10/20/18 10/21/18 10/21/18 21:59 05:59 13:59 Output Total 1500 800 Balance -1500 -800 Weight 104.4 kg Output: Void Amount 1500 800 Other: # Bowel Movements 1 1 Exam: General: Alert, Awake, No acute Distress Eyes/N/T: EOMI, Head/Neck: neck supple, CV: RRR, 3/6 SM Pulm: Bibasilar rales improving, no wheezing Abd: soft, nontender, +BS x4 Ext: no clubbing/cyanosis, 1+ b/l LE edema much improved Neuro: Alert, no focal deficits, moves all extremities, Skin: warm/dry Medical - PN: Obj Da - Labs CBC & Chem 7: 10/20/18 03:50 10/21/18 04:00 Labs: Abnormal Lab Results 10/21/18 10/20/18 10/20/18 04:00 08:18 03:50 RBC Hgb Hct RDW Plt Count Gran % Lymph % (Auto) Lymph # (Auto) D-Dimer Carbon Dioxide 32 H BUN 42 H 43 H Creatinine 1.5 H Glucose 112 H 123 H Calcium 8.2 L Phosphorus 4.7 H NT-Pro-B Natriuret Pep 1726.0 H Albumin 3.0 L Albumin/Globulin Ratio 0.9 L 10/20/18 10/19/18 10/19/18 03:50 08:06 08:05 RBC 3.72 L Hgb 11.7 L Hct 36.2 L RDW Plt Count 136 L Gran % Lymph % (Auto) Lymph # (Auto) 1.1 L D-Dimer 1.22 H Carbon Dioxide BUN 39 H Creatinine 1.4 H Glucose 174 H Calcium 8.5 L Phosphorus NT-Pro-B Natriuret Pep 1810.0 H Albumin Albumin/Globulin Ratio 10/19/18 08:05 RBC 3.95 L Hgb 12.3 L Hct 38.1 L RDW 15.0 H Plt Count Gran % 78.5 H Lymph % (Auto) 13.9 L Lymph # (Auto) 0.8 L D-Dimer Carbon Dioxide BUN Creatinine Glucose Calcium Phosphorus NT-Pro-B Natriuret Pep Albumin Albumin/Globulin Ratio Meds: Medications Acetaminophen (Tylenol) 650 mg PO Q4-6HP PRN PRN Reason: PAIN/FEVER > 101 Last Admin: 10/20/18 20:24 Dose: 650 mg Documented by: Al Hydrox/Mg Hydrox/Simethicone (Maalox) 30 ml PO Q4-6HP PRN PRN Reason: Dyspepsia Albuterol Sulfate (Ventolin) 2 puff INH TIDP PRN PRN Reason: Shortness Of Breath Or Wheezin Albuterol/Ipratropium (Duoneb) 3 ml NEB Q6HP PRN PRN Reason: Shortness Of Breath Or Wheezing Allopurinol (Zylopriim) 300 mg PO DAILY [facility] Last Admin: 10/20/18 08:23 Dose: 300 mg Documented by: Aspirin (Aspirin) 81 mg PO DAILY [facility] Last Admin: 10/20/18 08:23 Dose: 81 mg Documented by: Azithromycin (Zithromax) 250 mg PO DAILY [facility]; Protocol Stop: 10/23/18 09:01 Last Admin: 10/20/18 08:23 Dose: 250 mg Documented by: Carvedilol (Coreg) 25 mg PO DAILY@0800 [facility] Last Admin: 10/20/18 08:23 Dose: 25 mg Documented by: Carvedilol (Coreg) 37.5 mg PO [facility] Last Admin: 10/20/18 20:24 Dose: 37.5 mg Documented by: Famotidine (Pepcid) 20 mg IV [facility] Last Admin: 10/20/18 20:25 Dose: 20 mg Documented by: Furosemide (Lasix) 40 mg IV BIDD [facility] Last Admin: 10/20/18 18:24 Dose: 40 mg Documented by: Heparin Sodium (Porcine) (Heparin) 5,000 unit SQ Q12 [facility] Last Admin: 10/20/18 20:25 Dose: 5,000 unit Documented by: Ceftriaxone Sodium 2 gm/ (Dextrose) 50 mls @ 100 mls/hr IV DAILY [facility]; Protocol Last Admin: 10/20/18 08:24 Dose: 100 mls/hr Documented by: Naloxone HCl (Narcan) 0.1 mg IV Q2MIN PRN PRN Reason: Opiate Reversal Ondansetron HCl (Zofran) 4 mg IV Q4-6HP PRN PRN Reason: Nausea And Vomiting Simvastatin (Zocor) 40 mg PO [facility] Last Admin: 10/20/18 20:24 Dose: 40 mg Documented by: Sodium Chloride (Saline Flush) 10 ml IV Q8 [facility] Last Admin: 10/21/18 05:19 Dose: 10 ml Documented by: Medical - PN: A/P - Time Spent With Patient Total time spent is greater than 50% in coordination of care (as documented) at patient's floor/unit and/or counseling patient: - Narrative A/P Narrative: A: *Acute hypoxic/hypercapnic respiratory failure: 2/2 chf/?CAP vs aspiration pneumonitis -5-6L oxymask on admit, now on 4L NC -required bipap last night with improved ABG this morning *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 Chatterjee -good diuresis -echo EF 35-40%, grade III diastolic dysfxn, mild RV dilation, mod PH. No old echo available to compare *Suspect component of Aspiration Pneumonitis/?CAP: *Encephalopathy, metabolic: ?underlying mild dementia: *CAD w/CABG: follows with Dr. Chatterjee *HTN: on norvasc/lisinopril/coreg/lasix *CKD III: *Obesity: * P: -IV lasix bid -Wean down oxygen -IS/Acapella -IV Rocephin/Azithromycin/flagyl for now -pending BC/SC -Continue ASA/statin -Restart home coreg, hold lisinopril and norvasc for now -pt/ot -ST eval and video swallow, dysphagia diet -ppx: heparin/pepcid full code Medical - PN: Qual - VTE Deep Vein Thrombosis/Pulmonary Embolism Present on Admission: No
[2018-10-21] MEDS ORDERED: cefTRIAXone 2 GM VIAL ONE (08:16)
[2018-10-21] MEDS: CARVEDILOL 12.5 MG TABLET PO SCH ×2 (08:20→16:14)
[2018-10-21] MEDS: ASPIRIN 81 MG TAB.CHEW PO SCH (08:20)
[2018-10-21] MEDS: ALLOPURINOL 300 MG TABLET PO SCH (08:20)
[2018-10-21] MEDS: AZITHROMYCIN 250 MG TABLET PO SCH (08:21)
[2018-10-21] MEDS: cefTRIAXone 2 GM in DEXTROSE 5% IN WATER 50 ML IV SCH (08:21)
[2018-10-21] MEDS: FUROSEMIDE 40 MG/4 ML VIAL IV SCH (08:21)
[2018-10-21] MEDS: HEPARIN 5,000 UNIT/ML VIAL SQ SCH ×2 (08:22→20:34)
--- NOTE | 2018-10-21 09:40 | Cat Scan Report ---
CLINICAL INFORMATION: Confusion COMPARISON: None. TECHNIQUE: 2.5 mm helical slices were obtained in the skull base to vertex. Following reconstruction, axial reformatted images were reviewed at bone and parenchymal windows. The exam was performed using radiation dose optimization techniques including, but not limited to, automated exposure control, adjustment of the mA and/or kV according to patient size and use of iterative reconstruction technique. FINDINGS: The ventricles, sulci, fissures, and cisterns are symmetrically enlarged compatible with moderate age-related atrophy.. No extra-axial fluid collections are identified. Moderate patchy chronic ischemic changes in the deep cerebral white matter and scattered remote lacunar infarcts in the deep cerebral white matter basal and ganglia appreciated. There is no evidence of hemorrhage, mass effect, or edema. Bone windows show no osseous abnormality. IMPRESSION: Moderate atrophy and chronic ischemic changes in the deep cerebral white matter with scattered remote lacunar infarcts in the deep cerebral white matter basal ganglia. No acute disease Interpreted and Authenticated by: Perry Morales 10/21/18
--- NOTE | 2018-10-21 10:04 | XRay Report ---
CLINICAL INFORMATION: Follow-up CHF COMPARISON: 10/20/2018 FINDINGS: Mild cardiomegaly has decreased. Sternotomy changes again noted. Mediastinum is unremarkable. Pulmonary vessels have returned to normal in caliber. Diffuse interstitial edema has cleared. A moderate infiltrate in the left midlung and moderate patchy infiltrate in the right base shows slight improvement. Small bilateral pleural effusions have decreased IMPRESSION: Interval resolution CHF. Moderate left midlung and right basilar infiltrates - slight improvement. Suspect superimposed aspiration Interpreted and Authenticated by: Perry Morales 10/21/18
[2018-10-21] MEDS: metroNIDAZOLE 500 MG TABLET PO SCH ×2 (13:53→20:35)
[2018-10-21] MEDS ORDERED: hydrALAZINE 20 MG/ML VIAL IV PRN (15:49)
[2018-10-21] MEDS: amLODIPine 5 MG TABLET PO SCH (16:13)
--- NOTE | 2018-10-21 17:43 | XRay Report ---
CLINICAL INFORMATION: ?aspiration COMPARISON: None. FINDINGS: See attached sheet IMPRESSION: Trace barium penetration into the vestibule due to incomplete epiglottic closure noted only on thin barium. Thicker quality barium and solids passed normally. There is no penetration through the vocal cords into the trachea Moderate focal narrowing of the cervical esophagus at C5-6 level possibly indicating a stricture. Consider endoscopic evaluation and possible dilatation. Interpreted and Authenticated by: Perry Morales 10/21/18
[2018-10-21] MEDS: FAMOTIDINE/PF 20 MG/2 ML VIAL IV SCH (20:34)
[2018-10-21] MEDS ORDERED: SIMVASTATIN 20 MG TABLET PO SCH (21:00)
[2018-10-22] MEDS: metroNIDAZOLE 500 MG TABLET PO SCH ×3 (05:34→20:48)
[2018-10-22] MEDS: 0.9 % SODIUM CHLORIDE 10 ML SYRINGE IV SCH ×3 (05:35→20:49)
[2018-10-22 05:39] LABS: Blood Urea Nitrogen 37 mg/dl (8-23); Calcium 8.5 mg/dl (8.6-10.4); Carbon Dioxide 38 mmol/L (22-30); Chloride 99 mmol/L (96-108); Glomerular Filtration Rate 60; Glucose 117 mg/dL (70-105); Potassium 4.2 mmol/L (3.3-5.1); Sodium 145 mmol/L (133-145)
[2018-10-22] MEDS ORDERED: FUROSEMIDE 40 MG/4 ML VIAL IV ONE (07:04)
[2018-10-22] MEDS ORDERED: ALBUMIN HUMAN 12.5 GM/50 ML BAG IV ONE (07:04)
--- NOTE | 2018-10-22 07:05 | Internal Med Progress Note ---
Medical - PN: Subj Patient information: Note initiated : 10/22/18 at 7:00 am Service Date, if different from initiated Date: [] Patient: Cristobal Moralez 88 y/o M admitted on 10/19/18 for Shortness of breath. Chief Complaint: [] Interval history: Mr. Moralez is a 88 year old M with history of cardiac issues, presented to the hospital today for evaluation of shortness of breath that has been going on for the last 1 week. The patient notes that he was fine a week ago, he played a long game of golf and thinks he overexerted himself. Since then he has been having progressive shortness of breath. The patient was having decreased effort tolerance, and some mild cough. The patient then went to [place] for 3 days fo r a family outing. He also notes he may have overexerted over there. The patient did not take his water pills for the last 3 days. When he came back the patient's condition had worsened significantly, usually the patient is able to do yard work and then needs to take a rest because of shortness of breath every half an hour or so. The patient was now short of breath with minimal activity and even at rest he was therefore brought to the emergency room for further evaluation. The patient admits to having some cough with brownish sputum. Shortness of breath, however no other complaints. He has intermittent dizziness, denies any chest pain does always feel cold but no chills reported. No headache changes in vision no difficulty in swallowing no nausea no vomiting no diarrhea no recent hospitalizations reported. Patient has chronic lower extremity edema which is slightly worse now as he has missed his diuretic dose. [place] On presenting to the emergency room patient was afebrile heart rate 74 blood pressure 130 x 59 saturating 70% on room air. Respiration rate was 30 Chest x-ray was done which shows patient has bilateral pneumonia, cardiomegaly and possible CHF, patient had a positive d-dimer and a CT angios was done which was negative for PE but patient had pneumonia, also had some pleural effusion in the left fissure.?? Loculated?? Labs show WBC count of 5.9 hemoglobin 12.3 platelets 140 sodium 141 potassium 4.5 BUN 39 creatinine 1.4 which is nearly at baseline bicarbonate 27 glucose 174 procalcitonin is less than 0.05 BNP is 1810. At the time of my evaluation patient was needing around 6 L of oxygen to maintain his oxygen saturation more than 90. Patient is being admitted to the PCU for further management 10/20 Clinically. Minimal cough. Still has shortness of breath but feels he can breathe easier than yesterday morning. He says that shortness of breath for 2 years but was worsening over the past 1 to 2 weeks. Additionally, did not miss Lasix for the past week. Describes orthopnea at home. Also describes liquids often going down the wrong pipe. Family present. 10/20 Had a change in mentation last night with ABG showing CO2 retention. Placed on BiPAP last night with improvement in his ABG. Was agitated this morning and refusing therapies medication. Had a discussion with him he seemed to understand at times but is still overall confused. 10/21 Still states he coughs occasionally with thin liquids like coffee but then his son stated it is more when he is lying down and sinus drainage is felt to go down his airpipe. Barium swallow with speech yesterday was okay. Moira reports back in March his started complaining of feeling like liquids are going down the back of his throat. He refuses any thickened liquids. Does not feel like any food gets stuck in his esophagus, or pills. Is occasional dry cough, is on 2 to 3 L nasal cannula. Did not need BiPAP last night, was on oxygen mask desatted a little bit while sleeping. Review of Systems: denies headache/fever/chills/nausea/vomiting/chest or abdominal pain/diarrhea. Otherwise see above. - Constitutional Vitals: Vital Signs Temp Pulse Resp BP Pulse Ox 98.7 F 74 16 141/76 93 10/22/18 04:01 10/22/18 05:10 10/22/18 05:01 10/22/18 06:01 10/22/18 06:01 Period Temp Pulse Resp BP Sys/Hamilton Pulse Ox Last 24 Hr 97.4 F-99.3 F 62-78 16-25 120-164/50-118 77-100 Intake and Output 10/21/18 10/22/18 10/22/18 21:59 05:59 13:59 Intake Total 360 360 Output Total 350 250 Balance 10 110 Weight 104.281 kg Intake & Output: Intake & Output 10/21/18 10/22/18 10/22/18 21:59 05:59 13:59 Intake Total 360 360 Output Total 350 250 Balance 10 110 Weight 104.281 kg Intake: Oral 360 360 Output: Void Amount 350 250 Other: Urine Appearance Clear Sediment Urine Color Pale Dark Yellow Stool Size Moderate Stool Color Brown Stool Consistency Loose # Voids 1 1 # Bowel Movements 1 1 Exam: General: Alert, Awake, No acute Distress Eyes/N/T: EOMI, Head/Neck: neck supple, CV: RRR, 2/6 SM Pulm: mild Bibasilar rales continue to improve, no wheezing Abd: soft, nontender, +BS x4 Ext: no clubbing/cyanosis, b/l LE edema essentially resolved Neuro: Alert, no focal deficits, moves all extremities, Skin: warm/dry Medical - PN: Obj Da - Labs CBC & Chem 7: 10/21/18 04:00 10/22/18 03:30 Labs: Abnormal Lab Results 10/22/18 10/21/18 10/20/18 03:30 04:00 08:18 RBC Hgb Hct RDW Plt Count Gran % Lymph % (Auto) Lymph # (Auto) D-Dimer Carbon Dioxide 38 H 32 H BUN 37 H 42 H Creatinine 1.5 H Glucose 117 H 112 H Calcium 8.5 L Phosphorus NT-Pro-B Natriuret Pep 1726.0 H Albumin 3.0 L Albumin/Globulin Ratio 0.9 L 10/20/18 10/20/18 10/19/18 03:50 03:50 08:06 RBC 3.72 L Hgb 11.7 L Hct 36.2 L RDW Plt Count 136 L Gran % Lymph % (Auto) Lymph # (Auto) 1.1 L D-Dimer 1.22 H Carbon Dioxide BUN 43 H Creatinine Glucose 123 H Calcium 8.2 L Phosphorus 4.7 H NT-Pro-B Natriuret Pep Albumin Albumin/Globulin Ratio 10/19/18 10/19/18 08:05 08:05 RBC 3.95 L Hgb 12.3 L Hct 38.1 L RDW 15.0 H Plt Count Gran % 78.5 H Lymph % (Auto) 13.9 L Lymph # (Auto) 0.8 L D-Dimer Carbon Dioxide BUN 39 H Creatinine 1.4 H Glucose 174 H Calcium 8.5 L Phosphorus NT-Pro-B Natriuret Pep 1810.0 H Albumin Albumin/Globulin Ratio Meds: Medications Acetaminophen (Tylenol) 650 mg PO Q4-6HP PRN PRN Reason: PAIN/FEVER > 101 Last Admin: 10/20/18 20:24 Dose: 650 mg Documented by: Al Hydrox/Mg Hydrox/Simethicone (Maalox) 30 ml PO Q4-6HP PRN PRN Reason: Dyspepsia Albuterol Sulfate (Ventolin) 2 puff INH TIDP PRN PRN Reason: Shortness Of Breath Or Wheezin Albuterol/Ipratropium (Duoneb) 3 ml NEB Q6HP PRN PRN Reason: Shortness Of Breath Or Wheezing Allopurinol (Zylopriim) 300 mg PO DAILY [facility] Last Admin: 10/21/18 08:20 Dose: 300 mg Documented by: Amlodipine Besylate (Norvasc) 5 mg PO DAILY [facility] Last Admin: 10/21/18 16:13 Dose: 5 mg Documented by: Aspirin (Aspirin) 81 mg PO DAILY [facility] Last Admin: 10/21/18 08:20 Dose: 81 mg Documented by: Azithromycin (Zithromax) 250 mg PO DAILY [facility]; Protocol Stop: 10/23/18 09:01 Last Admin: 10/21/18 08:21 Dose: 250 mg Documented by: Carvedilol (Coreg) 12.5 mg PO BIDCC [facility] Last Admin: 10/21/18 16:14 Dose: 12.5 mg Documented by: Famotidine (Pepcid) 20 mg IV HS [facility] Last Admin: 10/21/18 20:34 Dose: 20 mg Documented by: Heparin Sodium (Porcine) (Heparin) 5,000 unit SQ Q12 [facility] Last Admin: 10/21/18 20:34 Dose: 5,000 unit Documented by: Hydralazine HCl (Apresoline) 0 mg IV Q2HP PRN PRN Reason: Hypertension Ceftriaxone Sodium 2 gm/ (Dextrose) 50 mls @ 100 mls/hr IV DAILY [facility]; Protocol Last Infusion: 10/21/18 09:40 Dose: Infused Documented by: Metronidazole (Flagyl) 500 mg PO Q8 [facility]; Protocol Last Admin: 10/22/18 05:34 Dose: 500 mg Documented by: Naloxone HCl (Narcan) 0.1 mg IV Q2MIN PRN PRN Reason: Opiate Reversal Ondansetron HCl (Zofran) 4 mg IV Q4-6HP PRN PRN Reason: Nausea And Vomiting Simvastatin (Zocor) 20 mg PO HS [facility] Last Admin: 10/21/18 20:36 Dose: 20 mg Documented by: Sodium Chloride (Saline Flush) 10 ml IV Q8 [facility] Last Admin: 10/22/18 05:35 Dose: 10 ml Documented by: Medical - PN: A/P - Time Spent With Patient Total time spent is greater than 50% in coordination of care (as documented) at patient's floor/unit and/or counseling patient: - Narrative A/P Narrative: A: *Acute hypoxic/hypercapnic respiratory failure: 2/2 chf &Aspiration pneum onitis/pna -5-6L oxymask on admit, now on 2L NC -no bipap last night *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 Chatterjee. Improved -good diuresis -echo EF 35-40%, grade III diastolic dysfxn, mild RV dilation, mod PH. 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 Chatterjee *HTN: on norvasc/lisinopril/coreg/lasix *CKD III: *Obesity: * P: -decrese IV lasix -Wean down oxygen -IS/Acapella -IV Rocephin/Azithromycin/flagyl for now -discussed case with Dr. Olsen who will see him outpt for EGD -Continue ASA/statin -Restart home coreg, norvasc restarted, hold lisinopril for now -pt/ot -ppx: heparin/pepcid Medical - PN: Qual - VTE Deep Vein Thrombosis/Pulmonary Embolism Present on Admission: No
[2018-10-22] MEDS: cefTRIAXone 2 GM in DEXTROSE 5% IN WATER 50 ML IV SCH (09:24)
[2018-10-22] MEDS: CARVEDILOL 12.5 MG TABLET PO SCH ×2 (09:25→16:16)
[2018-10-22] MEDS: ASPIRIN 81 MG TAB.CHEW PO SCH (09:25)
[2018-10-22] MEDS: AZITHROMYCIN 250 MG TABLET PO SCH (09:25)
[2018-10-22] MEDS: amLODIPine 5 MG TABLET PO SCH (09:25)
[2018-10-22] MEDS: HEPARIN 5,000 UNIT/ML VIAL SQ SCH ×2 (09:26→20:48)
[2018-10-22] MEDS: ALLOPURINOL 300 MG TABLET PO SCH (09:28)
--- NOTE | 2018-10-22 11:03 | Discharge Summary ---
Medical - DS: Prov Patient information: Note initiated : 10/22/18 at 10:55 am Service Date, if different from initiated Date: [] Patient: Cristobal Moralez 88 y/o M admitted on 10/19/18 for Shortness of breath. Chief Complaint: [] Date of admission: 10/19/18 12:20 Discharge date: 10/23/18 Primary care physician: Connor Bhakta Consults: 10/19/18 Consult to Physician [CONS] Stat Comment: Consulting Provider: Eduard Palumbo Reason For Exam: Physician to Consult Medical - DS: Meds - Discharge Medications Prescriptions: amLODIPine [Norvasc] 2.5 mg PO DAILY #1 tab Amoxicillin/Potassium Clav [Augmentin] 875 mg PO Q12H #4 tab Carvedilol [Coreg] 25 mg PO BID #1 tab Lactobacillus [Culturelle] 1 cap PO BID #40 cap Lisinopril [Zestril] 5 mg PO DAILY #20 tab Active and Home Medications: Home Medications Albuterol Sulfate [Ventolin] 2 puff INH TID PRN 10/19/18 [History Confirmed 10/19/18 Last Taken Unknown] Allopurinol [Zylopriim] 300 mg PO DAILY 10/19/18 [History Confirmed 10/19/18 Last Taken 10/19/18] Carvedilol [Coreg] 25 mg PO DAILY@0800 10/19/18 [History Confirmed 10/19/18 Last Taken 10/19/18] Carvedilol [Coreg] 37.5 mg PO HS 10/19/18 [History Confirmed 10/19/18 Last Taken 10/18/18 21:00] Furosemide [Lasix] 40 mg PO DAILY 10/19/18 [History Confirmed 10/19/18 Last Taken 10/19/18] Lisinopril [Zestril] 40 mg PO BID 10/19/18 [History Confirmed 10/19/18 Last Taken 10/19/18] Simvastatin [Zocor] 40 mg PO HS 10/19/18 [History Confirmed 10/19/18 Last Taken 10/18/18] amLODIPine [Norvasc] 5 mg PO DAILY 10/19/18 [History Confirmed 10/19/18 Last Taken 10/19/18] Home Medications Albuterol Sulfate [Ventolin] 2 puff INH TID PRN 10/19/18 [History Confirmed 10/19/18 Last Taken Unknown] Allopurinol [Zylopriim] 300 mg PO DAILY 10/19/18 [History Confirmed 10/19/18 Last Taken 10/19/18] Furosemide [Lasix] 40 mg PO DAILY 10/19/18 [History Confirmed 10/19/18 Last Taken 10/19/18] Simvastatin [Zocor] 40 mg PO HS 10/19/18 [History Confirmed 10/19/18 Last Taken 10/18/18] Amoxicillin/Potassium Clav [Augmentin] 875 mg PO Q12H #4 tab 10/22/18 [Rx Last Taken Unknown] Carvedilol [Coreg] 25 mg PO BID #1 tab 10/22/18 [Rx Last Taken Unknown] Lactobacillus [Culturelle] 1 cap PO BID #40 cap 10/22/18 [Rx Last Taken Unknown] Lisinopril [Zestril] 5 mg PO DAILY #20 tab 10/23/18 [Rx Last Taken Unknown] amLODIPine [Norvasc] 2.5 mg PO DAILY #1 tab 10/23/18 [Rx Last Taken Unknown] Monitor blood pressure twice daily and keep a log and bring to primary care provider Medical - DS: Hosp Hospital course: Mr. Moralez is a 88 year old M with history of cardiac issues, presented to the hospital today for evaluation of shortness of breath that has been going on for the last 1 week. The patient notes that he was fine a week ago, he played a long game of golf and thinks he overexerted himself. Since then he has been having progressive shortness of breath. The patient was having decreased effort tolerance, and some mild cough. The patient then went to [place] for 3 days for a family outing. He also notes he may have overexerted over there. The patient did not take his water pills for the last 3 days. When he came back the patient's condition had worsened significantly, usually the patient is able to do yard work and then needs to take a rest because of shortness of breath every half an hour or so. The patient was now short of breath with minimal activity and even at rest he was therefore brought to the emergency room for further evaluation. The patient admits to having some cough with brownish sputum. Shortness of breath, however no other complaints. He has intermittent dizziness, denies any chest pain does always feel cold but no chills reported. No headache changes in vision no difficulty in swallowing no nausea no vomiting no diarrhea no recent hospitalizations reported. Patient has chronic lower extremity edema which is slightly worse now as he has missed his diuretic dose. [place] On presenting to the emergency room patient was afebrile heart rate 74 blood pressure 130 x 59 saturating 70% on room air. Respiration rate was 30 Chest x-ray was done which shows patient has bilateral pneumonia, cardiomegaly and possible CHF, patient had a positive d-dimer and a CT angios was done which was negative for PE but patient had pneumonia, also had some pleural effusion in the left fissure.?? Loculated?? Labs show WBC count of 5.9 hemoglobin 12.3 platelets 140 sodium 141 potassium 4.5 BUN 39 creatinine 1.4 which is nearly at baseline bicarbonate 27 glucose 174 procalcitonin is less than 0.05 BNP is 1810. At the time of my evaluation patient was needing around 6 L of oxygen to maintain his oxygen saturation more than 90. Patient is being admitted to the PCU for further management 10/20 Clinically. Minimal cough. Still has shortness of breath but feels he can breathe easier than yesterday morning. He says that shortness of breath for 2 years but was worsening over the past 1 to 2 weeks. Additionally, did not miss Lasix for the past week. Describes orthopnea at home. Also describes liquids often going down the wrong pipe. Family present. 10/21 Had a change in mentation last night with ABG showing CO2 retention. Placed on BiPAP last night with improvement in his ABG. Was agitated this morning and refusing therapies medication. Had a discussion with him he seemed to understand at times but is still overall confused. 10/22 Still states he coughs occasionally with thin liquids like coffee but then his son stated it is more when he is lying down and sinus drainage is felt to go down his airpipe. Barium swallow with speech yesterday was okay. Moira reports back in March his started complaining of feeling like liquids are going down the back of his throat. He refuses any thickened liquids. Does not feel like any food gets stuck in his esophagus, or pills. Is occasional dry cough, is on 2 to 3 L nasal cannula. Did not need BiPAP last night, was on oxygen mask desatted a little bit while sleeping. 10/23 Continues to diurese well with well. Oxygen saturations good on nasal cannula however at night he did take off his supplemental oxygen and desatted. Son at bedside and talk to him about the importance of keeping on. Patient is overall doing well on eager to get out, affect is been wanting to get out of the past few days. 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 Chatterjee. Improved -good diuresis -echo EF 35-40%, grade III diastolic dysfxn, mild RV dilation, mod PH. 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 Chatterjee *HTN: on norvasc/lisinopril/coreg/lasix *CKD III: *Obesity: * P: -decrese IV lasix -Wean down oxygen -IS/Acapella -IV Rocephin/Azithromycin/flagyl for now -discussed case with Dr. Olsen who will see him outpt for EGD -Continue ASA/statin -Restart home coreg, norvasc restarted, hold lisinopril for now. -pt/ot -home O2 eval in AM -ppx: heparin/pepcid Discharge diagnosis: Acute on chronic systolic diastolic heart failure aspiration pneumonitis Secondary discharge diagnosis: Acute hypoxic hypercapnic respiratory failure encephalopathy CAD hypertension chronic kidney disease obesity - Time Spent with Patient Total time spent providing and/or coordinating discharge services: Greater than 30 minutes Medical - DS: Exam - Constitutional Vitals: Vital Signs Temp Pulse Resp BP Pulse Ox 10/22/18 09:01 149/82 90 10/22/18 08:01 144/55 92 10/22/18 07:25 98.3 F 18 148/59 96 10/22/18 07:01 148/71 93 10/22/18 06:01 141/76 93 10/22/18 05:10 74 93 10/22/18 05:01 72 16 126/75 93 10/22/18 04:07 70 93 10/22/18 04:01 98.7 F 75 25 H 143/66 93 10/22/18 03:01 76 135/69 90 10/22/18 02:12 78 100 10/22/18 02:02 73 18 98 10/22/18 01:32 64 96 10/22/18 01:01 70 20 144/66 96 10/22/18 01:00 63 25 H 96 10/22/18 00:06 70 145/63 91 10/22/18 00:02 99.2 F H 76 24 H 145/63 92 10/21/18 23:47 72 20 138/70 97 10/21/18 23:06 76 22 92 10/21/18 23:01 68 138/70 85 L 10/21/18 23:00 99.1 F H 73 24 H 138/70 85 L 10/21/18 22:01 67 22 142/57 94 10/21/18 22:00 99.3 F H 68 142/57 94 10/21/18 21:10 72 96 10/21/18 21:01 66 152/61 93 10/21/18 20:41 66 90 10/21/18 20:02 99.3 F H 65 144/68 92 10/21/18 19:53 68 95 10/21/18 19:02 139/53 10/21/18 18:15 68 90 10/21/18 18:01 67 132/54 87 L 10/21/18 17:01 62 18 124/56 92 10/21/18 16:11 97.8 F 72 22 137/54 91 10/21/18 15:34 70 20 141/99 95 10/21/18 14:12 20 10/21/18 14:01 67 20 138/118 94 10/21/18 13:23 66 18 124/59 92 10/21/18 12:00 18 123/60 94 10/21/18 11:00 20 135/58 77 L Intake and Output 10/21/18 10/22/1819 21:59 05:59 13:59 Intake Total 360 360 Output Total 350 250 450 Balance 10 110 -450 Intake: Oral 360 360 Output: Void Amount 350 250 450 Other: Meal Breakfast Percent of Meal Consumed 100% Feeding Ability Assist with Tray Set Up Urine Appearance Clear Sediment Urine Color Pale Dark Yellow Stool Size Moderate Moderate Stool Color Brown Brown Stool Consistency Loose Soft Loose # Voids 1 1 # Bowel Movements 1 1 1 Weight 104.281 kg Medical - DS: Data Labs on day of discharge: Labs from last 24 hours 10/22/18 03:30 Sodium 145 Potassium 4.2 Chloride 99 Carbon Dioxide 38 H Anion Gap 8.0 BUN 37 H Creatinine 1.1 GFR Calculation 60 Glucose 117 H Calcium 8.5 L Preliminary micro results at discharge 10/19/18 10:54 Blood Culture - Preliminary Blood 10/19/18 11:04 Blood Culture - Preliminary Blood Medical - DS: A/P - Patient/Caregiver Discharge Instructions Activity: increase activity as tolerated Diet: Cardiac Additional Instructions: Monitor blood pressure twice daily, keep a log and bring to primary care provider; if systolic blood pressure less than 100 or greater than 150 call primary care provider prior to appointment Prescriptions: Amoxicillin/Potassium Clav [Augmentin] 875 mg PO Q12H #4 tab Carvedilol [Coreg] 25 mg PO BID #1 tab Lactobacillus [Culturelle] 1 cap PO BID #40 cap - Follow up Plan Follow up with: Monster Olsen MD [Physician] - (Dr. Olsen's office will contact you to schedule an appointment.) Connor Bhakta MD [Primary Care Provider] - 10/27/18 3:00 pm Delano Chatterjee [Physician] - Disposition: Home, Self-Care Prognosis: Fair Rehab Potential: Fair Overall status at discharge: patient is progressing back to baseline Medical - DS: Qual - VTE Deep Vein Thrombosis/Pulmonary Embolism Present on Admission: No
[2018-10-22] MEDS ORDERED: ACETAMINOPHEN 325 MG TABLET PO PRN (15:42)
[2018-10-22] MEDS ORDERED: hydrALAZINE 20 MG/ML VIAL IV PRN (15:42)
[2018-10-22] MEDS ORDERED: ALBUTEROL SULFATE 1 PUFF INHALER INH PRN (15:42)
[2018-10-22] MEDS ORDERED: MAG HYDROX/AL HYDROX/SIMETH 30 ML ORAL.SUSP PO PRN (15:42)
[2018-10-22] MEDS ORDERED: ONDANSETRON 4 MG/2 ML VIAL IV PRN (15:42)
[2018-10-22] MEDS ORDERED: IPRATROPIUM/ALBUTEROL 3 ML AMPUL.NEB NEB PRN (15:42)
[2018-10-22] MEDS ORDERED: NALOXONE HCL 0.4 MG/ML VIAL IV PRN (15:42)
[2018-10-22] MEDS: LACTOBACILLUS 1 CAPSULE PO SCH (20:48)
[2018-10-22] MEDS ORDERED: LACTOBACILLUS 1 CAPSULE PO SCH (21:00)
[2018-10-22] MEDS ORDERED: SIMVASTATIN 20 MG TABLET PO SCH (21:00)
[2018-10-22] MEDS ORDERED: FAMOTIDINE/PF 20 MG/2 ML VIAL IV SCH (21:00)
[2018-10-22] MEDS ORDERED: MELATONIN 3 MG TABLET PO SCH ×2 (21:00)
[2018-10-23] MEDS: 0.9 % SODIUM CHLORIDE 10 ML SYRINGE IV SCH ×2 (05:37→08:23)
[2018-10-23] MEDS: metroNIDAZOLE 500 MG TABLET PO SCH ×2 (05:37→11:32)
--- NOTE | 2018-10-23 07:26 | Internal Med Progress Note ---
Medical - PN: Subj Patient information: Note initiated : 10/23/18 at 7:22 am Service Date, if different from initiated Date: [] Patient: Cristobal Moralez 88 y/o M admitted on 10/19/18 for Shortness of breath. Chief Complaint: [] Interval history: Mr. Moralez is a 88 year old M with history of cardiac issues, presented to the hospital today for evaluation of shortness of breath that has been going on for the last 1 week. The patient notes that he was fine a week ago, he played a long game of golf and thinks he overexerted himself. Since then he has been having progressive shortness of breath. The patient was having decreased effort tolerance, and some mild cough. The patient then went to [place] for 3 days fo r a family outing. He also notes he may have overexerted over there. The patient did not take his water pills for the last 3 days. When he came back the patient's condition had worsened significantly, usually the patient is able to do yard work and then needs to take a rest because of shortness of breath every half an hour or so. The patient was now short of breath with minimal activity and even at rest he was therefore brought to the emergency room for further evaluation. The patient admits to having some cough with brownish sputum. Shortness of breath, however no other complaints. He has intermittent dizziness, denies any chest pain does always feel cold but no chills reported. No headache changes in vision no difficulty in swallowing no nausea no vomiting no diarrhea no recent hospitalizations reported. Patient has chronic lower extremity edema which is slightly worse now as he has missed his diuretic dose. [place] On presenting to the emergency room patient was afebrile heart rate 74 blood pressure 130 x 59 saturating 70% on room air. Respiration rate was 30 Chest x-ray was done which shows patient has bilateral pneumonia, cardiomegaly and possible CHF, patient had a positive d-dimer and a CT angios was done which was negative for PE but patient had pneumonia, also had some pleural effusion in the left fissure.?? Loculated?? Labs show WBC count of 5.9 hemoglobin 12.3 platelets 140 sodium 141 potassium 4.5 BUN 39 creatinine 1.4 which is nearly at baseline bicarbonate 27 glucose 174 procalcitonin is less than 0.05 BNP is 1810. At the time of my evaluation patient was needing around 6 L of oxygen to maintain his oxygen saturation more than 90. Patient is being admitted to the PCU for further management 10/20 Clinically. Minimal cough. Still has shortness of breath but feels he can breathe easier than yesterday morning. He says that shortness of breath for 2 years but was worsening over the past 1 to 2 weeks. Additionally, did not miss Lasix for the past week. Describes orthopnea at home. Also describes liquids often going down the wrong pipe. Family present. 10/21 Had a change in mentation last night with ABG showing CO2 retention. Placed on BiPAP last night with improvement in his ABG. Was agitated this morning and refusing therapies medication. Had a discussion with him he seemed to understand at times but is still overall confused. 10/22 Still states he coughs occasionally with thin liquids like coffee but then his son stated it is more when he is lying down and sinus drainage is felt to go down his airpipe. Barium swallow with speech yesterday was okay. Moira reports back in March his started complaining of feeling like liquids are going down the back of his throat. He refuses any thickened liquids. Does not feel like any food gets stuck in his esophagus, or pills. Is occasional dry cough, is on 2 to 3 L nasal cannula. Did not need BiPAP last night, was on oxygen mask desatted a little bit while sleeping. 10/23 Continues to diurese well with well. Oxygen saturations good on nasal cannula however at night he did take off his supplemental oxygen and desatted. Son at bedside and talk to him about the importance of keeping on. Patient is overall doing well on eager to get out, affect is been wanting to get out of the past few days. Poor sleep and tired of being here Review of Systems: denies headache/fever/chills/nausea/vomiting/chest or abdominal pain/diarrhea. Otherwise see above. - Constitutional Vitals: Vital Signs Temp Pulse Resp BP Pulse Ox 98.4 F 64 20 109/62 94 10/23/18 00:02 10/22/18 14:00 10/22/18 23:52 10/23/18 00:02 10/23/18 04:02 Period Temp Pulse Resp BP Sys/Hamilton Pulse Ox Last 24 Hr 97.3 F-99.8 F 64-69 18-24 107-149/55-82 82-96 Intake and Output 10/22/18 10/23/18 10/23/18 21:59 05:59 13:59 Intake Total 360 Output Total 500 1300 Balance -140 -1300 Weight 101.605 kg Intake & Output: Intake & Output 10/22/18 10/23/18 10/23/18 21:59 05:59 13:59 Intake Total 360 Output Total 500 1300 Balance -140 -1300 Weight 101.605 kg Intake: Oral 360 Output: Void Amount 500 1300 Other: Meal Dinner Percent of Meal Consumed 100% Feeding Ability Independent Urine Appearance Clear Urine Color Dark Yellow Urine Odor Normal Stool Size Moderate Stool Color Brown Stool Consistency Soft Loose Exam: General: Alert, Awake, No acute Distress Eyes/N/T: EOMI, Head/Neck: neck supple, CV: RRR, 2/6 SM Pulm: mild Bibasilar rales, no wheezing Abd: soft, nontender, +BS x4 Ext: no clubbing/cyanosis, b/l LE edema essentially resolved Neuro: Alert, no focal deficits, moves all extremities, Skin: warm/dry Medical - PN: Obj Da - Labs CBC & Chem 7: 10/21/18 04:00 10/22/18 03:30 Labs: Abnormal Lab Results 10/22/18 10/21/18 10/20/18 03:30 04:00 08:18 Carbon Dioxide 38 H 32 H BUN 37 H 42 H Creatinine 1.5 H Glucose 117 H 112 H Calcium 8.5 L NT-Pro-B Natriuret Pep 1726.0 H Albumin 3.0 L Albumin/Globulin Ratio 0.9 L Meds: Medications Acetaminophen (Tylenol) 650 mg PO Q4-6HP PRN PRN Reason: PAIN/FEVER > 101 Al Hydrox/Mg Hydrox/Simethicone (Maalox) 30 ml PO Q4-6HP PRN PRN Reason: Dyspepsia Albuterol Sulfate (Ventolin) 2 puff INH TIDP PRN PRN Reason: Shortness Of Breath Or Wheezin Albuterol/Ipratropium (Duoneb) 3 ml NEB Q6HP PRN PRN Reason: Shortness Of Breath Or Wheezing Allopurinol (Zylopriim) 300 mg PO DAILY [facility] Amlodipine Besylate (Norvasc) 5 mg PO DAILY [facility] Aspirin (Aspirin) 81 mg PO DAILY [facility] Azithromycin (Zithromax) 250 mg PO DAILY [facility]; Protocol Stop: 10/23/18 09:01 Carvedilol (Coreg) 12.5 mg PO BIDCC [facility] Last Admin: 10/22/18 16:16 Dose: 12.5 mg Documented by: Famotidine (Pepcid) 20 mg IV HS [facility] Last Admin: 10/22/18 20:48 Dose: 20 mg Documented by: Heparin Sodium (Porcine) (Heparin) 5,000 unit SQ Q12 [facility] Last Admin: 10/22/18 20:48 Dose: 5,000 unit Documented by: Hydralazine HCl (Apresoline) 0 mg IV Q2HP PRN PRN Reason: Hypertension Ceftriaxone Sodium 2 gm/ (Dextrose) 50 mls @ 100 mls/hr IV DAILY [facility]; Protocol Lactobacillus Rhamnosus (Culturelle) 1 cap PO BID [facility] Last Admin: 10/22/18 20:48 Dose: 1 cap Documented by: Melatonin (Melatonin 3mg Tablet) 3 mg PO QHS [facility] Last Admin: 10/22/18 20:48 Dose: 3 mg Documented by: Metronidazole (Flagyl) 500 mg PO Q8 [facility]; Protocol Last Admin: 10/23/18 05:37 Dose: 500 mg Documented by: Naloxone HCl (Narcan) 0.1 mg IV Q2MIN PRN PRN Reason: Opiate Reversal Ondansetron HCl (Zofran) 4 mg IV Q4-6HP PRN PRN Reason: Nausea And Vomiting Simvastatin (Zocor) 20 mg PO HS [facility] Last Admin: 10/22/18 20:48 Dose: 20 mg Documented by: Sodium Chloride (Saline Flush) 10 ml IV Q8 [facility] Last Admin: 10/23/18 05:37 Dose: 10 ml Documented by: Medical - PN: A/P - Time Spent With Patient Total time spent is greater than 50% in coordination of care (as documented) at patient's floor/unit and/or counseling patient: - Narrative A/P Narrative: A: *Acute hypoxic/hypercapnic respiratory failure: 2/2 chf &Aspiration pneumonitis/pna -5-6L oxymask on admit, now on 2L NC -no bipap last night again *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 Chatterjee. Improved -good diuresis -echo EF 35-40%, grade III diastolic dysfxn, mild RV dilation, mod PH. 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 Chatterjee *HTN: on norvasc/lisinopril/coreg/lasix *CKD III: *Obesity: * P: -decrese IV lasix -Wean down oxygen -IS/Acapella -IV Rocephin/Azithromycin/flagyl for now -discussed case with Dr. Olsen who will see him outpt for EGD -Continue ASA/statin -Restart home coreg, norvasc restarted, hold lisinopril for now. -pt/ot -home O2 eval in AM -ppx: heparin/pepcid Medical - PN: Qual - VTE Deep Vein Thrombosis/Pulmonary Embolism Present on Admission: No
[2018-10-23] MEDS: LACTOBACILLUS 1 CAPSULE PO SCH (08:24)
[2018-10-23] MEDS: HEPARIN 5,000 UNIT/ML VIAL SQ SCH (08:26)
[2018-10-23] MEDS: CARVEDILOL 12.5 MG TABLET PO SCH (08:26)
[2018-10-23] MEDS ORDERED: ALLOPURINOL 300 MG TABLET PO SCH (09:00)
[2018-10-23] MEDS ORDERED: FUROSEMIDE 40 MG TABLET PO SCH (09:00)
[2018-10-23] MEDS ORDERED: cefTRIAXone 2 GM in DEXTROSE 5% IN WATER 50 ML IV SCH (09:00)
[2018-10-23] MEDS ORDERED: ASPIRIN 81 MG TAB.CHEW PO SCH (09:00)
[2018-10-23] MEDS ORDERED: AZITHROMYCIN 250 MG TABLET PO SCH (09:00)
[2018-10-23] MEDS ORDERED: amLODIPine 5 MG TABLET PO SCH (09:00)
== END 2018-10-23 11:37 | disposition home or self-care (01) | DRG 291 ==
LOC: ED 07:41 → ICU 12:18
PROVIDERS: ADMIT Internal Medicine; ATTEND Internal Medicine